=== PATIENT | female | born 1980 | race Hispanic/Latino ===

== ENCOUNTER 2022-04-12 19:55 | Emergency (ER) | payer SELFPAY ==
--- NOTE | 2022-04-12 20:25 | ER ---
Nurse's Notes [facility] Name: Yamini Moreno Age: 41 yrs Sex: Female : 1980 Arrival Date: 04/12/2022 Time: 19:58 Bed Waiting Private MD: Diagnosis: Strain of muscle, fascia and tendon of lower back Presentation: 04/12 20:16 Chief complaint: Patient states: I was lifting a 5 gallon jug of water and when I bent bm7 down to grab it I felt something in my back pop. My back has gone out before but, never like this. Coronavirus screen: At this time, the client does not indicate any symptoms associated with coronavirus-19. Ebola Screen: No symptoms or risks identified at this time. Initial Sepsis Screen: Does the patient meet any 2 criteria? No. Patient's initial sepsis screen is negative. Does the patient have a suspected source of infection? No. Patient's initial sepsis screen is negative. Risk Assessment: Do you want to hurt yourself or someone else? Patient reports no desire to harm self or others. Onset of symptoms was April 12, 2022. 20:16 Method Of Arrival: Ambulatory bm7 20:16 Acuity: OSVALDO 3 bm7 Triage Assessment: 20:18 General: Appears in no apparent distress. uncomfortable, Behavior is calm, cooperative, bm7 appropriate for age. Pain: Complains of pain in lumbar area, left low back and right low back Pain does not radiate. Pain currently is 10 out of 10 on a pain scale. Quality of pain is described as aching. EENT: No deficits noted. No signs and/or symptoms were reported regarding the EENT system. Neuro: No deficits noted. Cardiovascular: No deficits noted. Respiratory: No deficits noted. GI: No deficits noted. No signs and/or symptoms were reported involving the gastrointestinal system. : No deficits noted. No signs and/or symptoms were reported regarding the genitourinary system. Derm: No deficits noted. No signs and/or symptoms reported regarding the dermatologic system. Musculoskeletal: Reports pain in back. [employer]: 20:23 LMP 04/12/2022 bm7 Historical: - Allergies: 20:18 Toradol; bm7 - Home Meds: 20:18 None [Active]; bm7 - PMHx: 20:18 herniated disc L-5; bm7 - PSHx: 20:18 None; bm7 - Immunization history:: Adult Immunizations up to date. - Social history:: Smoking status: Patient reports the use of cigarette tobacco products, smokes one-half pack cigarettes per day. Screenin:24 Abuse screen: Denies threats or abuse. Nutritional screening: No deficits noted. bm7 Tuberculosis screening: No symptoms or risk factors identified. Fall Risk None identified. Assessment: 20:24 Reassessment: No changes from previously documented assessment. bm7 Vital Signs: 20:16 BP 132 / 80; Pulse 88; Resp 18; Temp 98.2(TE); Pulse Ox 100% on R/A; Weight 88.45 kg bm7 (R); Height 5 ft. 3 in. (160.02 cm); Pain 10/10; 20:16 Body Mass Index 34.54 (88.45 kg, 160.02 cm) bm7 ED Course: 19:58 Patient arrived in ED. jj6 20:17 Triage completed. bm7 20:18 Arm band placed on left ankle. bm7 20:19 Landen Sullivan MD is Attending Physician. kdr 20:23 Selma Cárdenas FNP-C is [facility]. kb 20:24 Patient has correct armband on for positive identification. bm7 20:24 No provider procedures requiring assistance completed. Patient did not have IV access bm7 during this emergency room visit. Administered Medications: 20:23 Drug: [place] (HYDROcodone-acetaminophen) 10 mg-325 mg 1 tabs Route: PO; bm7 20:27 Follow up: Response: No adverse reaction bm7 Medication: 20:24 VIS not applicable for this client. bm7 Outcome: 20:24 Discharge ordered by . kb 20:27 Discharged to home ambulatory. bm7 20:27 Condition: good 20:27 Discharge instructions given to patient, Instructed on discharge instructions, follow up and referral plans. medication usage, Demonstrated understanding of instructions, follow-up care, medications. 20:27 Patient left the ED. bm7 Signatures: Selma Cárdenas FNP-C GRAB HOOKER-CkLanden Houser MD MD kdr McCarthy, Brittany, RN RN bm7 Bree Bone jj6
--- NOTE | 2022-04-12 20:25 | EDPHYS ---
Physician Documentation [facility] Name: Yamini Moreno Age: 41 yrs Sex: Female : 1980 Arrival Date: 04/12/2022 Time: 19:58 Bed Waiting Private MD: ED Physician Landen Sullivan HPI: 04/12 20:33 This 41 yrs old Female presents to ER via Ambulatory with complaints of Back kb Injury. 20:33 The patient presents with pain that is acute. The symptoms are located in the right mid kb back. Onset: The symptoms/episode began/occurred today. The pain does not radiate. Associated signs and symptoms: The patient has no apparent associated signs or symptoms. The problem was sustained when lifting heavy object. Modifying factors: The patient symptoms are alleviated by nothing, the patient symptoms are aggravated by any movement. Severity of symptoms: At their worst the symptoms were moderate, in the emergency department the symptoms are unchanged. The patient has not experienced similar symptoms in the past. The patient has not recently seen a physician. 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 - Social history:: Smoking status: Patient reports the use of cigarette tobacco products, smokes one-half pack cigarettes per day. ROS: 20:23 Constitutional: Negative for fever, chills, and weight loss. kb 20:23 Back: Positive for pain at rest, pain with movement. 20:23 All other systems are negative. Exam: 20:32 Constitutional: This is a well developed, well nourished patient who is awake, alert, kb and in no acute distress. Head/Face: Normocephalic, atraumatic. ENT: Moist Mucous membranes Respiratory: Respirations even and unlabored. No increased work of breathing. Talking in full sentences Skin: Warm, dry with normal turgor. Normal color. MS/ Extremity: Pulses equal, no cyanosis. Neurovascular intact. Full, normal range of motion. Neuro: Awake and alert, GCS 15, oriented to person, place, time, and situation. Moves all extremities. Normal gait. Psych: Awake, alert, with orientation to person, place and time. Behavior, mood, and affect are within normal limits. 20:32 Back: pain, that is moderate, of the right mid back, ROM is painful, normal spinal alignment noted. 20:33 Neuro: Exam negative for acute changes. kb Vital Signs: 20:16 BP 132 / 80; Pulse 88; Resp 18; Temp 98.2(TE); Pulse Ox 100% on R/A; Weight 88.45 kg bm7 (R); Height 5 ft. 3 in. (160.02 cm); Pain 10/10; 20:16 Body Mass Index 34.54 (88.45 kg, 160.02 cm) bm7 MDM: 20:23 Patient medically screened. kb 20:23 Data reviewed: vital signs, nurses notes. Data interpreted: Pulse oximetry: on room air kb is 100 %. Interpretation: normal. Counseling: I had a detailed discussion with the patient and/or guardian regarding: the historical points, exam findings, and any diagnostic results supporting the discharge/admit diagnosis, the need for outpatient follow up, a family practitioner, to return to the emergency department if symptoms worsen or persist or if there are any questions or concerns that arise at home. 20:32 ED course: No vertebral tenderness. kb Administered Medications: 20:23 Drug: [place] (HYDROcodone-acetaminophen) 10 mg-325 mg 1 tabs Route: PO; bm7 20:27 Follow up: Response: No adverse reaction bm7 Disposition: 23:36 Co-signature as Attending Physician, Landen Sullivan MD I agree with the assessment and kdr plan of care. Disposition Summary: 04/12/22 20:24 Discharge Ordered Location: Home kb Condition: Stable kb Diagnosis - Strain of muscle, fascia and tendon of lower back kb Followup: kb - With: Emergency Department - When: As needed - Reason: Worsening of condition Followup: kb - With: Private Physician - When: 2 - 3 days - Reason: Recheck today's complaints, Continuance of care, Re-evaluation by your physician Discharge Instructions: - Discharge Summary Sheet kb - Acute Back Pain, Adult kb Forms: - Medication Reconciliation Form kb - Thank You Letter kb - Antibiotic Education kb - Prescription Opioid Use kb Prescriptions: - Cyclobenzaprine 10 mg Oral Tablet - take 1 tablet by ORAL route every 8 hours As needed; 15 tablet; Refills: 0, kb Product Selection Permitted - Diclofenac Sodium 75 mg Oral tablet,delayed release (DR/EC) - take 1 tablet by ORAL route 2 times per day As needed; 30 tablet; Refills: 0, kb Product Selection Permitted Signatures: Selma Cárdenas, Landen Oh MD MD kdr McCarthy, Brittany, RN RN bm7
[2022-04-12] MEDS ORDERED: HYDROCODONE/APAP 10/325 TAB ONE (20:32)
[2022-04-12 21:40] VITALS: BP 132/80; TEMP 98.2; O2SAT 100
== END 2022-04-12 20:27 | disposition home or self-care (01) ==
LOC: ER 19:55
DX: S39.012A Strain of muscle, fascia and tendon of lower back, initial encounter (principal); F17.210 Nicotine dependence, cigarettes, uncomplicated; Z88.5 Allergy status to narcotic agent
CPT/HCPCS: 99283

== ENCOUNTER 2022-05-04 14:52 | Emergency (ER) | payer SELFPAY ==
[2022-05-04] MEDS ORDERED: HYDROCODONE/APAP 7.5/325 MG TAB ONE (15:34)
[2022-05-04] MEDS ORDERED: CYCLOBENZAPRINE 10 MG TAB ONE (15:34)
--- NOTE | 2022-05-04 15:44 | RAD REPORT ---
EXAM DESCRIPTION: CT - Spine Lumbar Wo Con - 05/04/2022 3:34 pm CLINICAL HISTORY: low back pain after missing a step on the stairs and falling, no LOC, hx of hernia klaudia L5 disc COMPARISON: No comparisons TECHNIQUE: Axial noncontrast CT imaging of the lumbar spine was performed with coronal and sagittal re-formatted images. All CT scans are performed using dose optimization technique as appropriate and may include automated exposure control or mA/KV adjustment according to patient size. FINDINGS: No acute lumbar spine fracture seen. No aggressive marrow pattern or malalignment. Paraspinal tissues are normal in thickness. No paraspinal abscess or hematoma seen. Intervertebral disc disease assessment is inherently limited by CT. Within these limitations, no high -grade canal stenosis suspected. IMPRESSION: Negative examination. Consider MRI follow-up for assessment of disc disease if clinically desired.
--- NOTE | 2022-05-04 15:46 | ER ---
Nurse's Notes [facility] Name: Yamini Moreno Age: 42 yrs Sex: Female : 1980 Arrival Date: 05/04/2022 Time: 14:54 Bed 12 Private MD: Diagnosis: Low back pain Presentation: 05/04 15:05 Chief complaint: Patient states: missed step going up stairs moving a couch and fell, kr3 no LOC, back pain 9/10 since fall. Coronavirus screen: Vaccine status: Patient reports receiving the 2nd dose of the covid vaccine. Client denies travel out of the [place] in the last 14 days. Ebola Screen: Patient denies travel to an Ebola-affected area in the 21 days before illness onset. Initial Sepsis Screen: Does the patient meet any 2 criteria? HR > 90 bpm. No. Patient's initial sepsis screen is negative. Does the patient have a suspected source of infection? Yes: Bone or joint infection. Risk Assessment: Do you want to hurt yourself or someone else? Patient reports no desire to harm self or others. Onset of symptoms was May 04, 2022. 15:05 Method Of Arrival: Ambulatory kr3 15:05 Acuity: OSVALDO 3 kr3 Triage Assessment: 15:09 General: Appears distressed, uncomfortable, Behavior is calm, cooperative, appropriate kr3 for age. Pain: Complains of pain in lumbar area Pain currently is 9 out of 10 on a pain scale. Historical: - Allergies: 15:08 Toradol; kr3 - PMHx: 15:08 herniated disc L-5; kr3 - Immunization history:: Client reports receiving the 2nd dose of the Covid vaccine. - Social history:: Smoking status: Patient reports the use of cigarette tobacco products, denies chronic smoking, but will smoke occasionally. Vital Signs: 15:05 BP 144 / 116; Pulse 102; Resp 20; Temp 97.4; Pulse Ox 98% on R/A; Weight 88.9 kg; kr3 Height 5 ft. 4 in. (162.56 cm); Pain 9/10; 15:05 Body Mass Index 33.64 (88.90 kg, 162.56 cm) kr3 ED Course: 14:54 Patient arrived in ED. mr 15:08 Triage completed. kr3 15:09 Arm band placed on left wrist. Patient placed in an exam room, on a stretcher. kr3 15:10 Edilberto Mcgraw is PHCP. jl9 15:10 Bacilio Quiros MD is Attending Physician. jl9 15:36 Spine Lumbar Wo Con CT In Process Unspecified. EDMS Administered Medications: 15:28 Drug: Flexeril (cyclobenzaprine) 10 mg Route: PO; kr3 15:28 Drug: [place] (HYDROcodone-acetaminophen) (7.5 mg-325 mg) 1 tabs Route: PO; kr3 Outcome: 15:46 Discharge ordered by . jl9 16:25 Patient left the ED. Signatures: Dispatcher [employer] EDNV Heide Abdalla Heather, RN RN Edilberto Mcgraw jl Alesha Coe RN RN kr3
--- NOTE | 2022-05-04 15:46 | EDPHYS ---
Physician Documentation [facility] Name: Yamini Moreno Age: 42 yrs Sex: Female : 1980 Arrival Date: 05/04/2022 Time: 14:54 Bed 12 Private MD: ED Physician Bacilio Quiros HPI: 05/04 15:15 This 42 yrs old Female presents to ER via Ambulatory with complaints of Fall jl9 Injury onto her lower back due to missing a stair step while carrying a cough. Isolated pain to lower back. Denies hitting any other part of her body. . 15:15 Details of fall: The patient fell from an upright position, while walking. Onset: The jl9 symptoms/episode began/occurred just prior to arrival. Associated injuries: The patient sustained injury to the low back, pain, pain with movement. Severity of symptoms: in the emergency department the symptoms a " 7" out of "10". The patient has experienced similar episodes in the past. Historical: - Allergies: 15:08 Toradol; kr3 - PMHx: 15:08 herniated disc L-5; kr3 - Immunization history:: Client reports receiving the 2nd dose of the Covid vaccine. - Social history:: Smoking status: Patient reports the use of cigarette tobacco products, denies chronic smoking, but will smoke occasionally. ROS: 15:16 Constitutional: Negative for fever, chills, and weight loss, Eyes: Negative for injury, jl9 pain, redness, and discharge, ENT: Negative for injury, pain, and discharge, Neck: Negative for injury, pain, and swelling, Cardiovascular: Negative for chest pain, palpitations, and edema, Respiratory: Negative for shortness of breath, cough, wheezing, and pleuritic chest pain, Abdomen/GI: Negative for abdominal pain, nausea, vomiting, diarrhea, and constipation. 15:16 : Negative for injury, bleeding, discharge, and swelling, MS/Extremity: Negative for injury and deformity, Skin: Negative for injury, rash, and discoloration, Neuro: Negative for headache, weakness, numbness, tingling, and seizure, Psych: Negative for depression, anxiety, suicide ideation, homicidal ideation, and hallucinations, Allergy/Immunology: Negative for hives, rash, and allergies, Endocrine: Negative for neck swelling, polydipsia, polyuria, polyphagia, and marked weight changes, Hematologic/Lymphatic: Negative for swollen nodes, abnormal bleeding, and unusual bruising. 15:16 Back: Positive for pain with movement. Exam: 15:16 Constitutional: This is a well developed, well nourished patient who is awake, alert, jl9 and in no acute distress. Head/Face: Normocephalic, atraumatic. Eyes: Pupils equal round and reactive to light, extra-ocular motions intact. Lids and lashes normal. Conjunctiva and sclera are non-icteric and not injected. Cornea within normal limits. Periorbital areas with no swelling, redness, or edema. ENT: Mucous membranes moist. Neck: Trachea midline, no thyromegaly or masses palpated, and no cervical lymphadenopathy. Supple, full range of motion without nuchal rigidity, or vertebral point tenderness. No Meningismus. Chest/axilla: Normal chest wall appearance and motion. Nontender with no deformity. No lesions are appreciated. Cardiovascular: Regular rate and rhythm with a normal S1 and S2. No gallops, murmurs, or rubs. Normal PMI, no JVD. No pulse deficits. Respiratory: Lungs have equal breath sounds bilaterally, clear to auscultation and percussion. No rales, rhonchi or wheezes noted. No increased work of breathing, no retractions or nasal flaring. Abdomen/GI: Soft, non-tender, with normal bowel sounds. No distension or tympany. No guarding or rebound. No evidence of tenderness throughout. 15:16 Skin: Warm, dry with normal turgor. Normal color with no rashes, no lesions, and no evidence of cellulitis. MS/ Extremity: Pulses equal, no cyanosis. Neurovascular intact. Full, normal range of motion. Neuro: Awake and alert, GCS 15, oriented to person, place, time, and situation. Cranial nerves II-XII grossly intact. Motor strength 5/5 in all extremities. Sensory grossly intact. Cerebellar exam normal. Normal gait. Psych: Awake, alert, with orientation to person, place and time. Behavior, mood, and affect are within normal limits. 15:16 Back: pain, that is moderate, ROM is painful, normal spinal alignment noted, CVA tenderness, is absent, vertebral tenderness, is not appreciated, muscle spasm, is appreciated in the lumbar area. Vital Signs: 15:05 BP 144 / 116; Pulse 102; Resp 20; Temp 97.4; Pulse Ox 98% on R/A; Weight 88.9 kg; kr3 Height 5 ft. 4 in. (162.56 cm); Pain 05/04; 15:05 Body Mass Index 33.64 (88.90 kg, 162.56 cm) kr3 MDM: 15:10 Patient medically screened. jl9 15:17 Data reviewed: vital signs, nurses notes. jl9 15:45 Counseling: I had a detailed discussion with the patient and/or guardian regarding: the jl9 historical points, exam findings, and any diagnostic results supporting the discharge/admit diagnosis, radiology results, the need for outpatient follow up, to return to the emergency department if symptoms worsen or persist or if there are any questions or concerns that arise at home. 05/04 15:14 Order name: Spine Lumbar Wo Con CT; Complete Time: 15:45 jl9 Administered Medications: 15:28 Drug: Flexeril (cyclobenzaprine) 10 mg Route: PO; kr3 15:28 Drug: [place] (HYDROcodone-acetaminophen) (7.5 mg-325 mg) 1 tabs Route: PO; kr3 Disposition Summary: 05/04/22 15:46 Discharge Ordered Location: Home jl9 Condition: Stable jl9 Diagnosis - Low back pain jl9 Followup: jl9 - With: Private Physician - When: 1 - 2 days - Reason: Recheck today's complaints, Continuance of care, Re-evaluation by your physician Discharge Instructions: - Discharge Summary Sheet jl9 - Acute Back Pain, Adult jl9 Forms: - Medication Reconciliation Form jl9 - Work release form eb - Thank You Letter jl9 - Antibiotic Education jl9 - Prescription Opioid Use jl9 Prescriptions: - Cyclobenzaprine 10 mg Oral Tablet - take 1 tablet by ORAL route every 8 hours As needed; 30 tablet; Refills: 0, jl9 Product Selection Permitted - Tylenol-Codeine #3 300 mg-30 mg Oral - take 1 tablet by ORAL route every 6 hours As needed; 16 tablet; Refills: 0, jl9 Product Selection Permitted Signatures: Dispatcher [employer] Edilberto Ha jl9 Alesha Coe, RN RN kr3
[2022-05-04 16:56] VITALS: BP 144/116; TEMP 97.4; O2SAT 98
[2022-05-04] MEDS ORDERED: POTASSIUM 25 MEQ EFFERV TAB ONE (17:22)
== END 2022-05-04 16:25 | disposition home or self-care (01) ==
LOC: ER 14:52
DX: M54.50 Low back pain, unspecified (principal); F17.210 Nicotine dependence, cigarettes, uncomplicated; Z88.5 Allergy status to narcotic agent
CPT/HCPCS: 72131; 99283